=== PATIENT | female | born 1960 | race Two or more races ===

== ENCOUNTER 2019-01-23 10:00 | Outpatient (CLI) | payer BC ==
[~2019-01-23 10:00] MED LIST: BUPR1TAB SL; CARB100C4 PO; CARB100T19 GT; CYAN100071 PO; DRON2.5C11 PO; ESTR-7 PO; FLUR15CA14 PO; GABA-532 PO; METH10TA12 PO; NORT10CA PO; ONDA4TAB11 PO; OXYC1TAB PO; TOPI25TA49 PO
== END 2019-01-23 23:59 | disposition home or self-care (01) ==
LOC: MSC 10:00
PROVIDERS: ATTEND Anesthesiology
DX: G89.4 Chronic pain syndrome (principal); M46.96 Unspecified inflammatory spondylopathy, lumbar region; M51.26 Other intervertebral disc displacement, lumbar region; M48.061 Spinal stenosis, lumbar region without neurogenic claudication; M47.27 Other spondylosis with radiculopathy, lumbosacral region; M62.830 Muscle spasm of back; M79.2 Neuralgia and neuritis, unspecified; M79.662 Pain in left lower leg; M79.661 Pain in right lower leg; G20 Parkinson's disease